=== PATIENT | male | born 1985 | race Caucasian/White ===

== ENCOUNTER → 2023-08-13 | Emergency (ER) | payer BC ==
[~2023-08-13] VITALS: Ht 175.3 cm; Wt 100.0 kg
[~2023-08-13] MED LIST: IOHEXOL-350 100 ML BOTTLE ONE; METH-653 MT; MORPHINE SULFATE 4 MG/ML CPJ (NOT FOR IM USE) IV ONE; SODIUM CHLORIDE 0.9% 1,000 ML IV ONE
[2023-08-13 09:48] VITALS: O2SAT 100
[2023-08-13 10:17] LABS: BASOPHILS % 0.4 % (0.0-2.0); EOSINOPHILS % 3.2 % (0.0-5.0); HEMOGLOBIN. 15.5 g/dL (14.0-18.0); LYMPHOCYTES % 23.6 % (20.0-50.0); MEAN CORPUSCULAR HEMOGLOBIN 29.2 pg (28.0-32.0); MEAN CORPUSCULAR HGB CONC 33.6 g/dL (31.0-37.0); MEAN CORPUSCULAR VOLUME 86.9 fL (80.0-94.0); MEAN PLATELET VOLUME 8.1 fl (7.4-10.4); MONOCYTES % 4.7 % (2.0-8.0); NEUTROPHILS % 68.1 % (40.0-76.0); PLATELET 311 x1000/uL (130-400); RED BLOOD CELL COUNT 5.29 mill/uL (4.7-6.1); RED CELL DISTRIBUTION WIDTH 13.7 % (11.6-14.6); WHITE BLOOD COUNT 8.6 x1000/uL (4.5-11.0)
[2023-08-13 10:27] LABS: CHLORIDE 109 mEq/L (98-107); INDEX HEMOLYSI 1 (1-3); INDEX ICTERIC 1 (1-4); INDEX LIPEMIC 1 (1-3); PARTIAL THROMBOPLASTIN TIME 29.9 sec (23.4-31.0); POTASSIUM 3.6 mEq/L (3.5-5.1); PROTHROMBIN TIME 10.4 sec (9.6-11.0); SODIUM 142 mEq/L (136-145)
[2023-08-13 10:38] LABS: ALANINE AMINOTRANSFERASE 73 IU/L (13-61); ASPARTATE AMINOTRANSFERASE 34 IU/L (15-37); BILIRUBIN TOTAL 0.6 mg/dL (0.1-1.0); CALCIUM 8.8 mg/dL (8.5-10.1); CARBON DIOXIDE 28 mEq/L (21-32); CREATININE 0.7 mg/dL (0.6-1.3); GLUCOSE 104 mg/dL (70-105); PROTEIN TOTAL 7.8 g/dL (6.0-8.3); TROPONIN I HIGH SENSITIVITY 5 ng/L (<78); UREA NITROGEN BLOOD 12 mg/dL (7-21)
[2023-08-13 13:15] LABS: TROPONIN I HIGH SENSITIVITY 5 ng/L (<78)
[2023-08-13 21:12] VITALS: BP 140/66; PULSE 78; RESP 14; TEMP 97.9
== END ==
LOC: ER 09:47
DX: M54.12 Radiculopathy, cervical region (principal); R07.89 Other chest pain; Z90.49 Acquired absence of other specified parts of digestive tract
CPT/HCPCS: 99285; 71275; 96374; 96361; 71045; 80053; 85025; 85610; 85730; 86850; 86900; 86901; 84484; 36415; 70496; 70498; 72125; 93005; 70450; Q9967; J2270; J7030